=== PATIENT | female | born 1975 | race American Indian/Alaskan Native ===

== ENCOUNTER 2016-05-23 12:54 | Outpatient (CLI) | payer MEDICARE ==
[2016-05-23 13:21] LABS: Basophils % (Auto) 0.8 % (0.0-1.8); Eosinophils % (Auto) 7.1 % (0.0-4.3); Hematocrit 37.5 % (30.3-42.9); Hemoglobin 12.1 gm/dl (10.1-14.3); Mean Corpuscular HGB Conc 32 % (30-34); Mean Corpuscular Hemoglobin 27 pg (28-32); Mean Corpuscular Volume 84 fl (79-97); Platelet Count 304 K/mm3 (140-440); Red Blood Count 4.48 M/mm3 (3.65-5.03); Red Cell Distribution Width 13.9 % (13.2-15.2); White Blood Count 5.2 K/mm3 (4.5-11.0)
[2016-05-23 13:40] LABS: Alanine Aminotransferase 17 units/L (7-56); Albumin 4.1 g/dL (3.9-5); Albumin/Globulin Ratio 1.4 %; Alkaline Phosphatase 77 units/L (35-129); Anion Gap 20 mmol/L; BUN/Creatinine Ratio 6.25; Bilirubin,Total 0.3 mg/dL (0.1-1.2); Blood Urea Nitrogen 5 mg/dL (7-17); Carbon Dioxide 23 mmol/L (22-30); Chloride 102.4 mmol/L (98-107); Glucose 103 mg/dL (65-100); Potassium 3.7 mmol/L (3.6-5.0); Sodium 142 mmol/L (137-145)
[2016-05-23 13:45] LABS: Cholesterol 179 mg/dL (50-199); HDL Cholesterol 59 mg/dL (40-59); LDL Cholesterol,Direct 98 mg/dL (50-130); Triglycerides 114 mg/dL (2-149)
== END 2016-05-23 12:55 | disposition home or self-care (01) ==
LOC: LAB 12:54
PROVIDERS: ATTEND Psychiatry & Neurology Psychiatry
DX: F31.4 Bipolar disorder, current episode depressed, severe, without psychotic features (principal)
CPT/HCPCS: 36415; 80053; 80061; 83036; 84146; 84439; 84443; 85025

== ENCOUNTER 2017-04-03 04:51 | Emergency (ER) | payer MEDICARE ==
[2017-04-03 05:22] LABS: Bilirubin,Urine NEG (Negative); Blood,Urine NEG (Negative); Color,Urine Yellow (Yellow); Nitrite,Urine NEG (Negative); Protein,Urine <15 mg/dL mg/dL (Negative); Urobilinogen,Urine < 2.0 mg/dL (<2.0)
[2017-04-03 05:23] LABS: HCG Qualitative,Urine Negative (Negative)
[2017-04-03] MEDS ORDERED: ZITHROMAX PO ONE (07:57)
[2017-04-03] MEDS ORDERED: XYLOCAINE 1% MPF 5 mL INFILTRATI ONE (07:57)
[2017-04-03] MEDS ORDERED: ROCEPHIN IM ONE (07:57)
--- NOTE | 2017-04-03 08:31 | Emergency Department Report ---
ED Female HPI - General Chief complaint: Urogenital-Female Stated complaint: VAGINAL DISCHARGE Time Seen by Provider: 04/03/17 07:56 Source: patient Mode of arrival: Ambulatory Limitations: No Limitations - History of Present Illness Complaint: vaginal discharge, possible STD Onset/Timin -: days(s) Radiation: non-radiating Severity: moderate Severity scale (0 -10): 4 Quality: other (discharge ) Consistency: constant Improves with: none Worsens with: none Are you Now?: No Last Menstrual Period: 03/13/17 EDC: 12/18/17 Associated Symptoms: vaginal discharge. denies: vaginal bleeding, abdominal pain, nausea/vomiting, fever/chills, headaches, dysuria, hematuria, rash, shortness of breath, syncope, weakness - Related Data Sexually active: Yes (was 4 are okay RI and) Previous Rx's Medication Instructions Recorded Last Taken Type Famotidine [Pepcid] 20 mg PO BID #60 tablet 08/25/13 Unknown Rx Loratadine [Claritin] 10 mg PO DAILY #30 tablet 08/25/13 Unknown Rx predniSONE [Deltasone] 50 mg PO QDAY #5 tab 08/25/13 Unknown Rx metroNIDAZOLE [Flagyl] 500 mg PO Q12HR #14 tab 04/03/17 Unknown Rx Allergies Allergy/AdvReac Type Severity Reaction Status Date / Time codeine Allergy Itching Verified 08/25/13 12:25 cajun seasoning Allergy Swelling Uncoded 08/25/13 12:25 ED Review of Systems ROS: Stated complaint: VAGINAL DISCHARGE Other details as noted in HPI ED Past Medical Hx - Past Medical History Hx Hypertension: Yes Hx Arthritis: Yes (Rheumatoid) Hx Asthma: Yes Additional medical history: Fibromyalgia - Surgical History Additional Surgical History: ovarian cysts - Social History Smoking Status: Never Smoker Substance Use Type: None - Medications Home Medications: Home Medications Medication Instructions Recorded Confirmed Last Taken Type Famotidine [Pepcid] 20 mg PO BID #60 tablet 08/25/13 Unknown Rx Loratadine [Claritin] 10 mg PO DAILY #30 tablet 08/25/13 Unknown Rx predniSONE [Deltasone] 50 mg PO QDAY #5 tab 08/25/13 Unknown Rx metroNIDAZOLE [Flagyl] 500 mg PO Q12HR #14 tab 04/03/17 Unknown Rx ED Physical Exam - General Limitations: No Limitations ED Course Vital Signs 04/03/17 04/03/17 04:55 04:57 Temperature 98.2 F 98.2 F Pulse Rate 112 H 100 H Respiratory 18 16 Rate Blood Pressure 137/87 137/87 O2 Sat by Pulse 100 100 Oximetry Critical care attestation.: If time is entered above; I have spent that time in minutes in the direct care of this critically ill patient, excluding procedure time. ED Disposition Clinical Impression: STD (sexually transmitted disease), Bacterial vaginosis Disposition: - TO HOME OR SELFCARE Is pt being admited?: No Does the pt Need Aspirin: No Condition: Good Instructions: Bacterial Vaginosis (ED), Sexually Transmitted Diseases (ED) Prescriptions: metroNIDAZOLE [Flagyl] 500 mg PO Q12HR #14 tab Referrals: ESA TRAN MD [Primary Care Provider] - 3-5 Days Forms: STI Treatment and Prevention Time of Disposition: 08:33
[2017-04-03 08:47] VITALS: BP 130/82
--- NOTE | 2017-04-03 12:31 | Emergency Department Report ---
ED Female HPI - General Chief complaint: Urogenital-Female Stated complaint: VAGINAL DISCHARGE Time Seen by Provider: 04/03/17 07:56 Source: patient Mode of arrival: Ambulatory Limitations: No Limitations - History of Present Illness Initial comments: pt presents for STD , states unprotected sex 3 days ago and requesting anastasia prophylaxis treatment pt states vaginal discharge white thick no vaginal pain no abdominal pain no n/v no back pain. MD Complaint: vaginal discharge Onset/Timin -: days(s) Severity: moderate Quality: other (discharge ) Improves with: none Worsens with: none Last Menstrual Period: 03/13/17 EDC: 12/18/17 Associated Symptoms: vaginal discharge. denies: vaginal bleeding, abdominal pain, nausea/vomiting, fever/chills, headaches, dysuria, hematuria, rash, shortness of breath, syncope, weakness - Related Data Sexually active: Yes : 2 Para: 2 A: 0 Previous Rx's Medication Instructions Recorded Last Taken Type Famotidine [Pepcid] 20 mg PO BID #60 tablet 08/25/13 Unknown Rx Loratadine [Claritin] 10 mg PO DAILY #30 tablet 08/25/13 Unknown Rx predniSONE [Deltasone] 50 mg PO QDAY #5 tab 08/25/13 Unknown Rx metroNIDAZOLE [Flagyl] 500 mg PO Q12HR #14 tab 04/03/17 Unknown Rx Allergies Allergy/AdvReac Type Severity Reaction Status Date / Time codeine Allergy Itching Verified 08/25/13 12:25 cajun seasoning Allergy Swelling Uncoded 08/25/13 12:25 ED Review of Systems ROS: Stated complaint: VAGINAL DISCHARGE Other details as noted in HPI Constitutional: denies: chills, fever Eyes: denies: eye pain, eye discharge, vision change ENT: denies: ear pain, throat pain Respiratory: denies: cough, shortness of breath, wheezing Cardiovascular: denies: chest pain, palpitations Endocrine: no symptoms reported Gastrointestinal: denies: abdominal pain, nausea, diarrhea Genitourinary: urgency, dysuria, frequency, discharge. denies: hematuria, abnormal menses, dyspareunia Musculoskeletal: denies: back pain, joint swelling, arthralgia Skin: denies: rash, lesions Neurological: denies: headache, weakness, paresthesias Psychiatric: denies: anxiety, depression Hematological/Lymphatic: denies: easy bleeding, easy bruising ED Past Medical Hx - Past Medical History Hx Hypertension: Yes Hx Arthritis: Yes (Rheumatoid) Hx Asthma: Yes Additional medical history: Fibromyalgia - Surgical History Additional Surgical History: ovarian cysts - Social History Smoking Status: Never Smoker Substance Use Type: None - Medications Home Medications: Home Medications Medication Instructions Recorded Confirmed Last Taken Type Famotidine [Pepcid] 20 mg PO BID #60 tablet 08/25/13 Unknown Rx Loratadine [Claritin] 10 mg PO DAILY #30 tablet 08/25/13 Unknown Rx predniSONE [Deltasone] 50 mg PO QDAY #5 tab 08/25/13 Unknown Rx metroNIDAZOLE [Flagyl] 500 mg PO Q12HR #14 tab 04/03/17 Unknown Rx ED Physical Exam - General Limitations: No Limitations General appearance: alert, in no apparent distress - Head Head exam: Present: atraumatic, normocephalic - Eye Eye exam: Present: normal appearance - ENT ENT exam: Present: mucous membranes moist - Neck Neck exam: Present: normal inspection - Respiratory Respiratory exam: Present: normal lung sounds bilaterally. Absent: respiratory distress - Cardiovascular Cardiovascular Exam: Present: regular rate, normal rhythm. Absent: systolic murmur, diastolic murmur, rubs, gallop - GI/Abdominal GI/Abdominal exam: Present: soft, normal bowel sounds. Absent: distended, tenderness, guarding, rebound, rigid, organomegaly, mass, bruit, pulsatile mass , hernia - Rectal Rectal exam: Present: deferred - External exam: Present: normal external exam. Absent: erythema, swelling, lesions, lacerations, ecchymosis, bleeding Speculum exam: Present: erythema, vaginal discharge (white thick ). Absent: cervical discharge, vaginal bleeding, foreign body, tissue, laceration Bi-manual exam: Absent: normal bi-manual exam, cervical motion tendernes, adnexal tenderness, adnexal mass, uterine enlargement, uterine tenderness - Extremities Exam Extremities exam: Present: normal inspection - Back Exam Back exam: Present: normal inspection. Absent: full ROM, tenderness, CVA tenderness (R), CVA tenderness (L), muscle spasm, paraspinal tenderness, vertebral tenderness, rash noted - Neurological Exam Neurological exam: Present: alert, oriented X3 - Psychiatric Psychiatric exam: Present: normal affect, normal mood - Skin Skin exam: Present: warm, dry, intact, normal color. Absent: rash ED Course Vital Signs 04/03/17 04/03/17 04/03/17 04:55 04:57 08:46 Temperature 98.2 F 98.2 F Pulse Rate 112 H 100 H 90 Respiratory 18 16 18 Rate Blood Pressure 137/87 137/87 Blood Pressure 130/82 [Right] O2 Sat by Pulse 100 100 99 Oximetry ED Medical Decision Making - Lab Data Laboratory Tests 04/03/17 Unknown Urine Color Yellow Urine Turbidity Clear Urine pH 5.0 Ur Specific [place] 1.017 Urine Protein <15 mg/dl Urine Glucose (UA) Neg Urine Ketones Neg Urine Blood Neg Urine Nitrite Neg Urine Bilirubin Neg Urine Urobilinogen < 2.0 Ur Leukocyte Esterase Neg Urine WBC (Auto) 1.0 Urine RBC (Auto) 2.0 U Epithel Cells (Auto) < 1.0 Urine HCG, Qual Negative - Medical Decision Making pt presents request prophylactic tx for std after unprotected sex 3 days ago , and secondary vaginal discharge white thick malodorous , no cmt ,os closed no bleeding, no rash no lesion no open sore, wetprep: noted, ua/hcg noted plan tx for sti as requested pt will follow up with health department for hiv screening dc to home with rx for flaygyl po , pt verbalized agreement and understanding of discharge plan. Critical care attestation.: If time is entered above; I have spent that time in minutes in the direct care of this critically ill patient, excluding procedure time. ED Disposition Clinical Impression: STD (sexually transmitted disease), Bacterial vaginosis Disposition: DC-01 TO HOME OR SELFCARE Condition: Good Instructions: Bacterial Vaginosis (ED), Sexually Transmitted Diseases (ED) Prescriptions: metroNIDAZOLE [Flagyl] 500 mg PO Q12HR #14 tab Referrals: ESA TRAN MD [Primary Care Provider] - 3-5 Days Forms: STI Treatment and Prevention
== END 2017-04-03 08:46 | disposition home or self-care (01) ==
LOC: ED 04:51
DX: N76.0 Acute vaginitis (principal); A64 Unspecified sexually transmitted disease; I10 Essential (primary) hypertension; M19.90 Unspecified osteoarthritis, unspecified site; J45.909 Unspecified asthma, uncomplicated; Z88.6 Allergy status to analgesic agent; Z91.018 Allergy to other foods
CPT/HCPCS: 81001; 81025; 87210; 87591; 96372; 99284; J0696

== ENCOUNTER 2017-11-22 02:56 | Emergency (ER) | payer MEDICARE ==
[2017-11-22 05:57] LABS: Bilirubin,Urine NEG (Negative); Blood,Urine NEG (Negative); Color,Urine Yellow (Yellow); Protein,Urine <15 mg/dL mg/dL (Negative); Urobilinogen,Urine < 2.0 mg/dL (<2.0)
[2017-11-22 05:58] LABS: HCG Qualitative,Urine Negative (Negative)
--- NOTE | 2017-11-22 08:24 | Emergency Department Report ---
ED Female HPI - General Chief complaint: Urogenital-Female Stated complaint: VAGINAL DISCHARGE Time Seen by Provider: 11/22/17 08:15 Source: patient Mode of arrival: Stretcher Limitations: No Limitations - History of Present Illness Initial comments: This is 42-year-old female here report that she is having vaginal discharge for about 3 days now. She said she was having sexual activity in the colon numbers and she thinks she has an STD. She is complaining of abdominal pain at 9 and a 10 cramp into her pelvic area. Denies any nausea or vomiting. Patient has a history of rheumatoid arthritis, fibromyalgia and ovarian cysts. Denies any nausea or vomiting. Reports some urinary burning. Denies any vaginal bleeding. Last menstrual period was 10/24/2017. Denies any back pain. Pain is crampy no alleviating or exacerbating factor. Pain is intermittent. MD Complaint: vaginal discharge, dysuria, possible STD Onset/Timin -: days(s) Location: suprapubic Radiation: non-radiating Severity: severe Severity scale (0 -10): 9 Quality: cramping Consistency: intermittent Improves with: none Worsens with: none Are you Now?: No Last Menstrual Period: 10/24/17 EDC: 07/31/18 Associated Symptoms: vaginal discharge, abdominal pain, dysuria. denies: vaginal bleeding, nausea/vomiting, fever/chills, headaches, loss of appetite, hematuria, rash, seizure, shortness of breath, syncope, weakness - Related Data Sexually active: Yes Previous Rx's Medication Instructions Recorded Last Taken Type Famotidine [Pepcid] 20 mg PO BID #60 tablet 08/25/13 Unknown Rx Loratadine [Claritin] 10 mg PO DAILY #30 tablet 08/25/13 Unknown Rx predniSONE [Deltasone] 50 mg PO QDAY #5 tab 08/25/13 Unknown Rx cephALEXin [Keflex] 500 mg PO Q8HR 5 Days #15 cap 11/22/17 Unknown Rx metroNIDAZOLE [Flagyl TAB] 500 mg PO Q12HR #14 tab 11/22/17 Unknown Rx Allergies Allergy/AdvReac Type Severity Reaction Status Date / Time codeine Allergy Itching Verified 08/25/13 12:25 cajun seasoning Allergy Swelling Uncoded 08/25/13 12:25 ED Review of Systems ROS: Stated complaint: VAGINAL DISCHARGE Other details as noted in HPI Constitutional: denies: chills, fever Respiratory: denies: cough, shortness of breath, SOB with exertion, SOB at rest , stridor, wheezing Cardiovascular: denies: chest pain, palpitations, edema, syncope Gastrointestinal: abdominal pain. denies: nausea, vomiting, diarrhea, constipation Genitourinary: dysuria, discharge. denies: urgency, frequency, hematuria, abnormal menses, dyspareunia Musculoskeletal: denies: back pain, joint swelling, arthralgia, myalgia Skin: denies: rash, lesions Neurological: denies: headache, weakness ED Past Medical Hx - Past Medical History Previous Medical History?: Yes Hx Hypertension: Yes Hx Arthritis: Yes (Rheumatoid) Hx Asthma: Yes Additional medical history: Fibromyalgia - Surgical History Past Surgical History?: Yes Additional Surgical History: ovarian cysts - Family History Family history: hypertension - Social History Smoking Status: Current Every Day Smoker Substance Use Type: Alcohol, Marijuana - Medications Home Medications: Home Medications Medication Instructions Recorded Confirmed Last Taken Type Famotidine [Pepcid] 20 mg PO BID #60 tablet 08/25/13 Unknown Rx Loratadine [Claritin] 10 mg PO DAILY #30 tablet 08/25/13 Unknown Rx predniSONE [Deltasone] 50 mg PO QDAY #5 tab 08/25/13 Unknown Rx cephALEXin [Keflex] 500 mg PO Q8HR 5 Days #15 cap 11/22/17 Unknown Rx metroNIDAZOLE [Flagyl TAB] 500 mg PO Q12HR #14 tab 11/22/17 Unknown Rx ED Physical Exam - General Limitations: No Limitations General appearance: alert, in no apparent distress - Head Head exam: Present: atraumatic, normocephalic, normal inspection - Eye Eye exam: Present: normal appearance, PERRL, EOMI Pupils: Present: normal accommodation - ENT ENT exam: Present: normal exam, normal orophraynx, mucous membranes moist, TM's normal bilaterally, normal external ear exam - Neck Neck exam: Present: normal inspection, full ROM. Absent: tenderness, lymphadenopathy - Respiratory Respiratory exam: Present: normal lung sounds bilaterally. Absent: respiratory distress, chest wall tenderness - Cardiovascular Cardiovascular Exam: Present: regular rate, normal rhythm, normal heart sounds. Absent: systolic murmur, diastolic murmur - GI/Abdominal GI/Abdominal exam: Present: soft, normal bowel sounds. Absent: distended, tenderness, guarding, rebound, rigid, organomegaly, mass - External exam: Present: normal external exam. Absent: erythema, swelling, lesions, lacerations, ecchymosis, bleeding Speculum exam: Present: vaginal discharge, cervical discharge. Absent: normal speculum exam, erythema, vaginal bleeding, foreign body, tissue, laceration Bi-manual exam: Present: normal bi-manual exam. Absent: cervical motion tendernes, adnexal tenderness, adnexal mass, uterine enlargement, uterine tenderness - Extremities Exam Extremities exam: Present: normal inspection, tenderness, normal capillary refill, other (ambulate without any difficulties). Absent: full ROM, pedal edema, joint swelling, calf tenderness - Back Exam Back exam: Present: normal inspection, full ROM, other (ambulates without any difficulties). Absent: tenderness, CVA tenderness (R), CVA tenderness (L), muscle spasm, paraspinal tenderness, vertebral tenderness, rash noted - Neurological Exam Neurological exam: Present: alert, oriented X3, normal gait, reflexes normal. Absent: motor sensory deficit - Psychiatric Psychiatric exam: Present: normal affect, normal mood - Skin Skin exam: Present: warm, dry, intact, normal color. Absent: rash ED Course Vital Signs 11/22/17 11/22/17 03:00 07:58 Temperature 98.2 F Pulse Rate 104 H 88 Respiratory 20 18 Rate Blood Pressure 165/114 155/95 O2 Sat by Pulse 100 100 Oximetry - Reevaluation(s) Reevaluation #1: 11/22/17 09:35 Patient given Rocephin 250 mg IM, azithromycin 1 g by mouth in emergency room for gonorrhea and chlamydia. ED Medical Decision Making - Medical Decision Making This is a 42-year-old patient here reports that she is having some burning with urination, vaginal discharge study 3 days ago. Patient stated be treated for STD because she says that she was having sexual activity and the condom burst and she is pretty sure she has STD. Examined Patient. Physical Exam Is Normal except for Minor Suprapubic Tenderness. Urinalysis Showed Large Amount of Leukocyte Estrace and Test Is Negative. Wet Prep Positive for Bacterial Vaginosis Negative for Trichomonas and yeast. Gonorrhea and Chlamydia Collected and Sent and Results Are Pending. I discussed diagnosis and treatment plan the patient and I told her I will treat her empirically for gonorrhea and chlamydia which will take about 3-5 days to be resulted and she is to return to his medical records department with her ID to get test results. I discussed with her that if her test is positive she needs to follow-up with our department for recheck in 7-10 days. Also told her that she has minor urinary tract infection which will be treated with Keflex for 5 days and bacterial vaginosis to be treated with Flagyl for 7 days. She voiced understanding and she was given Rocephin 250 IM in the azithromycin 1 g by mouth to treat gonorrhea and chlamydia patient had no adverse reaction to medication and discharged home in stable condition with prescription for Keflex and Flagyl and to follow-up with [facility] or health department in 7-10 days for retesting. Vital signs are stable she is afebrile. Encouraged safe sex. Critical care attestation.: If time is entered above; I have spent that time in minutes in the direct care of this critically ill patient, excluding procedure time. ED Disposition Clinical Impression: Bacterial vaginosis, Concern about STD in female without diagnosis, Vaginal discharge, Dysuria UTI (urinary tract infection) Qualifiers: Urinary tract infection type: acute cystitis Hematuria presence: without hematuria Qualified Code(s): N30.00 - Acute cystitis without hematuria Abdominal pain Qualifiers: Abdominal location: lower abdomen, unspecified Qualified Code(s): R10.30 - Lower abdominal pain, unspecified Disposition: TO HOME OR SELFCARE Is pt being admited?: No Does the pt Need Aspirin: No Condition: Stable Instructions: Bacterial Vaginosis (ED), Sexually Transmitted Diseases (ED), Safe Sex (ED), Abdominal Pain (ED), Urinary Tract Infection in Women (ED) Additional Instructions: He was treated for gonorrhea and Chlamydia in Please refrain from having unsafe sex. He can return to medical records department to have fever Chlamydia and gonorrhea tests. Please bring ID with you. If you test is positive then used the to have follow-up repeat testing at the health department in 7-10 days Please tell your partner know that you are having vaginal discharge and you treated for gonorrhea and chlamydia in emergency room You also has a small urinary tract infection and will be treated with Keflex to take 3 times a day for 5 days. Prescriptions: cephALEXin [Keflex] 500 mg PO Q8HR 5 Days #15 cap metroNIDAZOLE [Flagyl TAB] 500 mg PO Q12HR #14 tab Referrals: ESA TRAN MD [Primary Care Provider] - 11/25/17 [facility] [Outside[facility] Forms: STI Treatment and Prevention, Work/School Release Form(ED)
[2017-11-22 09:11] VITALS: BP 121/78
[2017-11-22] MEDS ORDERED: ZITHROMAX PO ONE (09:29)
[2017-11-22] MEDS ORDERED: ROCEPHIN IM ONE (09:29)
[2017-11-22] MEDS ORDERED: XYLOCAINE 1% MPF 5 mL INFILTRATI ONE (09:29)
== END 2017-11-22 10:16 | disposition home or self-care (01) ==
LOC: ED 02:56
DX: N30.00 Acute cystitis without hematuria (principal); N76.0 Acute vaginitis; I10 Essential (primary) hypertension; M06.9 Rheumatoid arthritis, unspecified; J45.909 Unspecified asthma, uncomplicated; F17.200 Nicotine dependence, unspecified, uncomplicated; F12.10 Cannabis abuse, uncomplicated
CPT/HCPCS: 81001; 81025; 87086; 87210; 87591; 96372; 99284; J0696

== ENCOUNTER 2020-06-07 14:49 | Emergency (ER) | payer MEDICARE ==
--- NOTE | 2020-06-07 15:35 | Emergency Department Report ---
Blank Doc - Documentation Documentation: 44-year-old female that presents with lower abdominal pain, nausea vomiting, d iarrhea and urinary changes. 1- This initial assessment/diagnostic orders/clinical plan/ treatment(s) is/are subject to change based on pt's health status, clinical progression and re- assessment by fellow clinical providers in the ED. Further treatment and workup at subsequent clinical provers discretion. Patient/guardians urged not to elope from ED as their condition may be serious if not clinically assessed and managed. 2-labs 3-UA
--- NOTE | 2020-06-08 00:28 | Emergency Department Report ---
ED Female HPI - General Chief complaint: Abdominal Pain Stated complaint: abd pains Time Seen by Provider: 06/07/20 15:08 Source: patient Mode of arrival: Ambulatory Limitations: No Limitations - History of Present Illness Initial comments: Patient is 44 years old female with history of osteoarthritis. Patient presented to the ER complaining of vaginal discharge and lower abdominal pain for the last few days. Patient described her discharge itchy, white in color associated with burning. Patient stated that she is worried about STD. Patient denied any fever or chills. No upper abdominal pain. No nausea or vomiting. 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 ALONSO Complaint: vaginal discharge, dysuria, possible STD -: days(s) Location: suprapubic Severity: moderate Associated Symptoms: vaginal discharge. denies: vaginal bleeding, abdominal pain, nausea/vomiting, fever/chills, headaches, loss of appetite, dysuria, hematuria, rash - Related Data Sexually active: Yes Previous Rx's Medication Instructions Recorded Last Taken Type Famotidine [Pepcid] 20 mg PO BID #60 tablet 08/25/13 Unknown Rx Loratadine (Nf) [Claritin] 10 mg PO DAILY #30 tablet 08/25/13 Unknown Rx predniSONE [Deltasone] 50 mg PO QDAY #5 tab 08/25/13 Unknown Rx cephALEXin [Keflex] 500 mg PO Q8HR 5 Days #15 cap 11/22/17 Unknown Rx metroNIDAZOLE [Flagyl TAB] 500 mg PO Q12HR #14 tab 11/22/17 Unknown Rx Allergies Allergy/AdvReac Type Severity Reaction Status Date / Time codeine Allergy Itching Verified 08/25/13 12:25 cajun seasoning Allergy Swelling Uncoded 08/25/13 12:25 ED Review of Systems ROS: Stated complaint: abd pains Other details as noted in HPI Comment: All other systems reviewed and negative Constitutional: denies: chills, fever Respiratory: denies: cough, shortness of breath, SOB with exertion Gastrointestinal: denies: abdominal pain, nausea, vomiting Genitourinary: discharge Musculoskeletal: denies: back pain ED Past Medical Hx - Past Medical History Previous Medical History?: Yes Hx Hypertension: Yes Hx Arthritis: Yes (Rheumatoid) Hx Asthma: Yes Additional medical history: Fibromyalgia. osteoporosis. states bladder has fallen into cervix - Surgical History Past Surgical History?: Yes Additional Surgical History: ovarian cysts. small intestine removed. bilateral ankle surgery. right knee surgery - Social History Smoking Status: Never Smoker Substance Use Type: None - Medications Home Medications: Home Medications Medication Instructions Recorded Confirmed Last Taken Type Famotidine [Pepcid] 20 mg PO BID #60 tablet 08/25/13 Unknown Rx Loratadine (Nf) [Claritin] 10 mg PO DAILY #30 tablet 08/25/13 Unknown Rx predniSONE [Deltasone] 50 mg PO QDAY #5 tab 08/25/13 Unknown Rx cephALEXin [Keflex] 500 mg PO Q8HR 5 Days #15 cap 11/22/17 Unknown Rx metroNIDAZOLE [Flagyl TAB] 500 mg PO Q12HR #14 tab 11/22/17 Unknown Rx ED Physical Exam - General Limitations: No Limitations General appearance: alert, in no apparent distress - Head Head exam: Present: atraumatic, normocephalic, normal inspection - Eye Eye exam: Present: normal appearance - ENT ENT exam: Present: normal exam, normal orophraynx, mucous membranes moist - Neck Neck exam: Present: normal inspection, full ROM. Absent: tenderness, meningismus - Respiratory Respiratory exam: Present: normal lung sounds bilaterally - Cardiovascular Cardiovascular Exam: Present: regular rate, normal rhythm, normal heart sounds - GI/Abdominal GI/Abdominal exam: Present: soft, normal bowel sounds. Absent: distended, tenderness, guarding, rebound, rigid, organomegaly, mass, bruit, pulsatile mass, hernia - External exam: Present: normal external exam. Absent: erythema, swelling, lesions, lacerations, ecchymosis, bleeding Speculum exam: Present: vaginal discharge Bi-manual exam: Present: normal bi-manual exam - Extremities Exam Extremities exam: Present: normal inspection, full ROM, normal capillary refill. Absent: tenderness - Back Exam Back exam: Present: normal inspection, full ROM. Absent: CVA tenderness (R), CVA tenderness (L) - Neurological Exam Neurological exam: Present: alert, oriented X3, CN II-XII intact - Psychiatric Psychiatric exam: Present: normal mood - Skin Skin exam: Present: warm, intact, normal color ED Course Vital Signs 06/07/20 14:56 Temperature 97.9 F Pulse Rate 94 H Respiratory 16 Rate Blood Pressure 178/113 O2 Sat by Pulse 98 Oximetry ED Medical Decision Making - Lab Data Result diagrams: 06/08/20 00:38 - Medical Decision Making Patient is 44 years old female with history of osteoarthritis. Patient presented to the ER complaining of vaginal discharge and lower abdominal pain for the last few days. Patient described her discharge itchy, white in color associated with burning. Patient stated that she is worried about STD. Patient denied any fever or chills. No upper abdominal pain. No nausea or vomiting. Division Merchandise Manager nurse Lois. Labs reviewed and is unremarkable. Urine showed yeast. GC chlamydia culture is pending. Given patient symptoms patient received Rocephin 500 mg IM and given prescription for doxycycline and Diflucan and advised to follow-up with her primary doctor in the next 2 to 3 days. Critical care attestation.: If time is entered above; I have spent that time in minutes in the direct care of this critically ill patient, excluding procedure time. ED Disposition Clinical Impression: Vaginal discharge, STD (female) Disposition: DC- TO HOME OR SELFCARE Is pt being admited?: No Condition: Stable Instructions: Abdominal Pain (ED), Vaginal Yeast Infection, Adult, Vaginitis Referrals: PRIMARY CARE, [Primary Care Provider] - 3-5 Days
[2020-06-08 00:48] LABS: Bilirubin,Urine NEG (Negative); Blood,Urine NEG (Negative); Color,Urine Straw (Yellow); Mucus,Urine FEW /HPF; Protein,Urine <15 mg/dL mg/dL (Negative); Urobilinogen,Urine < 2.0 mg/dL (<2.0)
[2020-06-08 00:49] LABS: Basophils # (Auto) 0.1 K/mm3 (0.0-0.1); Basophils % (Auto) 0.9 % (0.0-1.8); Eosinophils # (Auto) 0.2 K/mm3 (0.0-0.4); Eosinophils % (Auto) 3.4 % (0.0-4.3); Lymphocytes # (Auto) 2.1 K/mm3 (1.2-5.4); Lymphocytes % (Auto) 32.2 % (13.4-35.0); Mean Corpuscular HGB Conc 33 % (30-34); Mean Corpuscular Volume 85 fl (79-97); Monocytes # (Auto) 0.6 K/mm3 (0.0-0.8); Monocytes % (Auto) 9.6 % (0.0-7.3); Platelet Count 287 K/mm3 (140-440); Red Blood Count 4.23 M/mm3 (3.65-5.03)
[2020-06-08 00:52] LABS: HCG Qualitative,Urine Negative (Negative)
[2020-06-08 01:03] LABS: Bacteria,Urine 1+ /HPF (Negative)
[2020-06-08] MEDS ORDERED: LIDOCAINE-MPF (1%) 10 MG/1 ML VIAL 5 ML INFILTRATI ONE (02:00)
[2020-06-08 02:24] VITALS: BP 195/122
== END 2020-06-08 02:26 | disposition home or self-care (01) ==
LOC: ED 14:49
DX: N89.8 Other specified noninflammatory disorders of vagina (principal); A64 Unspecified sexually transmitted disease; I10 Essential (primary) hypertension; M19.90 Unspecified osteoarthritis, unspecified site; J45.909 Unspecified asthma, uncomplicated; Z79.899 Other long term (current) drug therapy; Z98.890 Other specified postprocedural states; Z88.8 Allergy status to other drugs, medicaments and biological substances
CPT/HCPCS: 36415; 81001; 81025; 85025; 87591; 99283; J0696

== ENCOUNTER 2021-04-12 06:57 | Emergency (ER) | payer MEDICARE ==
[2021-04-12 07:06] VITALS: BP 154/113
[2021-04-12 07:33] LABS: Bilirubin,Urine NEG (Negative); Blood,Urine NEG (Negative); Color,Urine Straw (Yellow); Mucus,Urine FEW /HPF; Protein,Urine <15 mg/dL mg/dL (Negative); RBC,Urine < 1.0 /HPF (0.0-6.0); Urobilinogen,Urine < 2.0 mg/dL (<2.0); WBC,Urine < 1.0 /HPF (0.0-6.0)
[2021-04-12 07:36] LABS: HCG Qualitative,Urine Negative (Negative)
--- NOTE | 2021-04-12 08:41 | Emergency Department Report ---
ED Female HPI - General Chief complaint: Urogenital-Female Stated complaint: female issues Time Seen by Provider: 04/12/21 07:20 Source: patient Mode of arrival: Ambulatory Limitations: No Limitations - History of Present Illness Initial comments: This is a 45-year-old female nontoxic, well nourished in appearance, no acute signs of distress presents to the ED with c/o of vaginal discharge x2 days. Patient denies any vaginal pain or swelling. Patient denies any vaginal ulcers or lesions. Patient stated she finished antibiotic course about 3 weeks ago and symptoms started 2 days ago. Patient denies any nausea, vomiting, chest pain, shortness of breathe, fever, chills, headache, back pain, numbness, tingling, stiff neck. Patient denies any urinary symptoms. Patient stated allergies to codeine. Severity scale (0 -10): 0 Improves with: none Worsens with: none Are you Now?: No Associated Symptoms: vaginal discharge. denies: vaginal bleeding, abdominal pain, nausea/vomiting, fever/chills, headaches, loss of appetite, dysuria, hematuria, rash, seizure, shortness of breath, syncope, weakness - Related Data Sexually active: No Previous Rx's Medication Instructions Recorded Last Taken Type Famotidine [Pepcid] 20 mg PO BID #60 tablet 08/25/13 Unknown Rx Loratadine (Nf) [Claritin] 10 mg PO DAILY #30 tablet 08/25/13 Unknown Rx predniSONE [Deltasone] 50 mg PO QDAY #5 tab 08/25/13 Unknown Rx cephALEXin [Keflex] 500 mg PO Q8HR 5 Days #15 cap 11/22/17 Unknown Rx metroNIDAZOLE [Flagyl TAB] 500 mg PO Q12HR #14 tab 11/22/17 Unknown Rx Doxycycline Hyclate [Doxycycline 100 mg PO Q12HR #14 tab 06/08/20 Unknown Rx Hyclate TAB] Fluconazole [Diflucan TAB] 100 mg PO BID #2 tablet 06/08/20 Unknown Rx Allergies Allergy/AdvReac Type Severity Reaction Status Date / Time codeine Allergy Itching Verified 08/25/13 12:25 cajun seasoning Allergy Swelling Uncoded 08/25/13 12:25 ED Review of Systems ROS: Stated complaint: female issues Other details as noted in HPI Comment: All other systems reviewed and negative Constitutional: denies: chills, fever Eyes: denies: eye pain, eye discharge, vision change ENT: denies: ear pain, throat pain Respiratory: denies: cough, shortness of breath, wheezing Cardiovascular: denies: chest pain, palpitations Endocrine: no symptoms reported Gastrointestinal: denies: abdominal pain, nausea, diarrhea Genitourinary: discharge. denies: urgency, dysuria, frequency, hematuria, abn ormal menses, dyspareunia Musculoskeletal: denies: back pain, joint swelling, arthralgia Skin: denies: rash, lesions Neurological: denies: headache, weakness, paresthesias Psychiatric: denies: anxiety, depression Hematological/Lymphatic: denies: easy bleeding, easy bruising ED Past Medical Hx - Past Medical History Hx Hypertension: Yes Hx Arthritis: Yes (Rheumatoid) Hx Asthma: Yes Additional medical history: Fibromyalgia. osteoporosis. states bladder has fallen into cervix - Surgical History Additional Surgical History: ovarian cysts. small intestine removed. bilateral ankle surgery. right knee surgery - Social History Smoking Status: Never Smoker Substance Use Type: None - Medications Home Medications: Home Medications Medication Instructions Recorded Confirmed Last Taken Type Famotidine [Pepcid] 20 mg PO BID #60 tablet 08/25/13 Unknown Rx Loratadine (Nf) [Claritin] 10 mg PO DAILY #30 tablet 08/25/13 Unknown Rx predniSONE [Deltasone] 50 mg PO QDAY #5 tab 08/25/13 Unknown Rx cephALEXin [Keflex] 500 mg PO Q8HR 5 Days #15 cap 11/22/17 Unknown Rx metroNIDAZOLE [Flagyl TAB] 500 mg PO Q12HR #14 tab 11/22/17 Unknown Rx Doxycycline Hyclate [Doxycycline 100 mg PO Q12HR #14 tab 06/08/20 Unknown Rx Hyclate TAB] Fluconazole [Diflucan TAB] 100 mg PO BID #2 tablet 06/08/20 Unknown Rx ED Physical Exam - General Limitations: No Limitations General appearance: alert, in no apparent distress - Head Head exam: Present: atraumatic, normocephalic - Eye Eye exam: Present: normal appearance - Neck Neck exam: Present: normal inspection, full ROM. Absent: lymphadenopathy - Respiratory Respiratory exam: Absent: respiratory distress - Cardiovascular Cardiovascular Exam: Present: regular rate - GI/Abdominal GI/Abdominal exam: Present: soft, normal bowel sounds. Absent: distended, tenderness, guarding, rebound, rigid, diminished bowel sounds - Extremities Exam Extremities exam: Present: full ROM - Back Exam Back exam: Present: normal inspection, full ROM. Absent: tenderness, CVA tenderness (R), CVA tenderness (L), muscle spasm, paraspinal tenderness, vertebral tenderness, rash noted - Neurological Exam Neurological exam: Present: alert, oriented X3, normal gait - Psychiatric Psychiatric exam: Present: normal affect, normal mood - Skin Skin exam: Present: warm, dry, intact, normal color. Absent: rash ED Course Vital Signs 04/12/21 06:57 Temperature 97.3 F L Pulse Rate 105 H Respiratory 18 Rate Blood Pressure 154/113 [Right] O2 Sat by Pulse 98 Oximetry - Reevaluation(s) Reevaluation #1: 04/12/21 08:38 Patient is speaking in full sentences with no signs of distress noted. ED Medical Decision Making - Lab Data Lab Results 04/12/21 Range/Units 07:24 Urine Color Straw (Yellow) Urine Turbidity Clear (Clear) Urine pH 6.0 (5.0-7.0) Ur Specific Bruni 1.009 (1.003-1.030) Urine Protein <15 mg/dl (Negative) mg/dL Urine Glucose (UA) Neg (Negative) mg/dL Urine Ketones Neg (Negative) mg/dL Urine Blood Neg (Negative) Urine Nitrite Neg (Negative) Urine Bilirubin Neg (Negative) Urine Urobilinogen < 2.0 (<2.0) mg/dL Ur Leukocyte Esterase Neg (Negative) Urine WBC (Auto) < 1.0 (0.0-6.0) /HPF Urine RBC (Auto) < 1.0 (0.0-6.0) /HPF U Epithel Cells (Auto) < 1.0 (0-13.0) /HPF Urine Mucus Few /HPF Urine HCG, Qual Negative (Negative) - Medical Decision Making 45-year-old female that presents with vaginal discharge. Patient is stable and was examined by me. Due to ED overflow with no ED rooms available, patient performed a self vaginal swab and was educated and instructed how to do this pr ior to doing this. Patient is notified of the urine results and swabs. UA is unremarkable. Wet prep is unremarkable. Patient was instructed to follow-up with a primary care doctor in 3-5 days or if symptoms worsen and continue return to emergency room as soon as possible. At time of discharge, the patient does not seem toxic or ill in appearance. No acute signs of distress noted. Patient agrees to discharge treatment plan of care. No further questions noted by the patient. The patient was evaluated in the emergency department for symptoms described in the history of present illness. He/she was evaluated in the context of the global COVID-19 pandemic, which necessitated consideration that the patient might be at risk for infection with the virus that causes COVID-19. Institutional protocols and algorithms that pertain to the evaluation of patients at risk for COVID-19 are in a state of rapid change based on information released by regulatory bodies including the CDC and federal and state organizations. These policies and algorithms were followed during the patient's care in the emergency department. Please note that these policies, procedures and recommendations changed on a rapid basis. Critical care attestation.: If time is entered above; I have spent that time in minutes in the direct care of this critically ill patient, excluding procedure time. ED Disposition Clinical Impression: Vaginal discharge Disposition: 01 HOME / SELF CARE / HOMELESS Is pt being admited?: No Does the pt Need Aspirin: No Condition: Stable Additional Instructions: Follow-up with a primary care doctor in 3-5 days or if symptoms worsen and continue return to emergency room as soon as possible. Referrals: ESA TRAN MD [Primary Care Provider] - 3-5 Days PRIMARY CAREMD [Referring] - 3-5 Days ANGEL SMITH MD [Staff Physician] - 3-5 Days Forms: Work/School Release Form(ED) Time of Disposition: 08:41
== END 2021-04-12 09:27 | disposition home or self-care (01) ==
LOC: ED 06:57
DX: N89.8 Other specified noninflammatory disorders of vagina (principal); I10 Essential (primary) hypertension; M06.9 Rheumatoid arthritis, unspecified; J45.909 Unspecified asthma, uncomplicated; M79.7 Fibromyalgia; M81.0 Age-related osteoporosis without current pathological fracture; Z53.21 Procedure and treatment not carried out due to patient leaving prior to being seen by health care provider; Z88.5 Allergy status to narcotic agent; Z91.018 Allergy to other foods
CPT/HCPCS: 81001; 81025; 87210; 87591; 99283